=== PATIENT | female | born 1990 | race Caucasian/White ===

== ENCOUNTER 2017-07-30 16:52 | Inpatient (IN) | payer OTHER ==
[~2017-07-30] VITALS: Ht 165.1 cm; Wt 89.1 kg
[2017-07-30 17:45] LABS: CHLORIDE 108 mEq/L (99-109); POTASSIUM 3.3 mEq/L (3.7-5.4)
[2017-07-30 17:46] LABS: SODIUM 144 mEq/L (136-147)
[2017-07-30 17:47] LABS: GLUCOSE 127 mg/dL (70-99)
[2017-07-30 17:48] LABS: HEMATOCRIT 38.9 % (36.0-46.0); MCH 28.7 PG (29.0-34.0); MCHC 33.2 G/DL (30.0-36.0); MCV 86.4 FL (83-99); MEAN PLAT.VOLUME 10.3 uM^3 (9.5-12.4); PLATELET COUNT 283 K/uL (156-360); RBC DIS.WIDTH-CV 12.9 % (11.8-14.6); RBC DIS.WIDTH-SD 40.7 % (39-53); WHITE BLOOD COUNT 13.4 K/uL (4.1-10.2)
[2017-07-30 17:49] LABS: ANION GAP 11 MEQ/L (2-14)
[2017-07-30 17:50] LABS: SERUM ETHYL ALCOHOL < 10 mg/dL
[2017-07-30 17:52] LABS: UREA NITROGEN (BUN) 16 mg/dL (9-23)
[2017-07-30 18:14] LABS: GFR ESTIMATE (CALCULATED) > 59 mL/min/
[2017-07-30 18:30] LABS: QUANTITATIVE HCG < 4.0 MIU/ML
[2017-07-30 20:34] LABS: AMPHETAMINE NEGATIVE (500 ng/mL); BARBITURATES NEGATIVE (200 ng/mL); BENZODIAZEPINES NEGATIVE (150 ng/mL); COCAINE NEGATIVE (150 ng/mL); METHADONE NEGATIVE (200 ng/mL); METHAMPHETAMINE NEGATIVE (500 ng/mL); OPIATES (MORPHINE) NEGATIVE (100 ng/mL); OXYCODONE NEGATIVE (100 ng/mL); PHENCYCLIDINE NEGATIVE (25 ng/mL); PROPOXYPHENE NEGATIVE (300 ng/mL); THC CANNABINOIDS PRESUMPTIVE POSITIVE (50 ng/mL); TRICYCLIC ANTIDEPRESSANTS NEGATIVE (300 ng/mL)
[2017-07-30 20:35] LABS: ADD MEDTOX COMMENT Y; INTERNAL CONTROLS VALID? YES
[2017-07-30] MEDS ORDERED: MULTIPLE VITAM1 EAC1 PO (20:58)
[2017-07-30] MEDS ORDERED: VITAMIN B COMP1 EACH PO (20:58)
[2017-07-30] MEDS ORDERED: PROAIR HFA8.5 GM IH (20:59)
[2017-07-30] MEDS ORDERED: ADVAIR 100/501 DISK IH (20:59)
[2017-07-30] MEDS ORDERED: ERGOCALCIF50000 UNIT PO (20:59)
[2017-07-30 21:19] VITALS: BP 134/94
[2017-07-30 21:29] VITALS: BP 134/94
[2017-07-30] MEDS ORDERED: PROZAC40 MG PO (22:07)
[2017-07-30] MEDS ORDERED: MOTRIN600 MG PO (22:10)
[2017-07-30] MEDS ORDERED: MELATONIN5 M3 PO (22:13)
[2017-07-31 08:08] VITALS: BP 143/92
[2017-07-31 15:45] VITALS: BP 118/57
[2017-08-01 07:47] VITALS: BP 134/91
[2017-08-01 15:27] VITALS: BP 115/77
[2017-08-02 07:46] VITALS: BP 137/86
== END 2017-08-02 15:30 | disposition left against medical advice (07) | DRG 885 ==
LOC: EME 16:52 → EDOF 19:19 → 1WEST 19:19 → ENRESERV 21:09 → 1WEST 21:09
DX: F31.81 Bipolar II disorder (principal); F60.3 Borderline personality disorder; R45.851 Suicidal ideations; R45.850 Homicidal ideations; F12.90 Cannabis use, unspecified, uncomplicated; A69.20 Lyme disease, unspecified; A69.23 Arthritis due to Lyme disease; F17.210 Nicotine dependence, cigarettes, uncomplicated; E66.9 Obesity, unspecified; Z68.33 Body mass index [BMI] 33.0-33.9, adult; Z76.5 Malingerer [conscious simulation]; Z59.9 Problem related to housing and economic circumstances, unspecified
CPT/HCPCS: 80048; 84702; 84999; 85027; 90839; 93005; 97150 GO; 97165 GO; 99281; 99285; G0480; Q0177